=== PATIENT | female | born 1940 | race Caucasian/White ===

== ENCOUNTER 2020-05-26 09:58 | Emergency (ER) | payer MEDICARE, MEDICAID, SELFPAY ==
[2020-05-26] VITALS (12 sets, daily range): BP systolic 121–163; BP diastolic 51–84; PULSE 59–99; RESP 16–28; TEMP 36.3–36.4; O2SAT 94–100; BMI 22.0
--- NOTE | 2020-05-26 10:03 | ECG_ITS ---
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 Measurements Intervals [place] Rate: 70 P: UT: -1 QRS: 11 QRSD: 74 T: 71 QT: 373 QTc: 403 Interpretive Statements Sinus rhythm with PAC and ectopic atrial beats. No previous ECG available for comparison Electronically Signed On 05-26-2020 12:09:18 CDT by Yesenia Bauman M.D. [email or web address] [facility]aksYuanpei Translationpromed[facility].[employer]/store/NU/[id number] f
--- NOTE | 2020-05-26 10:03 | CTR_ITS ---
PROCEDURE INFORMATION: Exam: CT Angiography Chest With Contrast Exam date and time: 05/26/2020 10:50 AM Age: 79 years old Clinical indication: Abdominal pain; Generalized; Chest pain; Type not specified; Patient HX: Copd, emphysema; Additional info: Cp TECHNIQUE: Imaging protocol: Computed tomographic angiography of the chest with intravenous contrast. 3D rendering (Not supervised by radiologist): MIP and/or 3D reconstructed images were created by the technologist. Radiation optimization: All CT scans at this facility use at least one of these dose optimization techniques: automated exposure control; mA and/or kV adjustment per patient size (includes targeted exams where dose is matched to clinical indication); or iterative reconstruction. Contrast material: OMNIPAQUE 350; Contrast volume: 75 ml; Contrast route: INTRAVENOUS (IV); COMPARISON: CR (CHEST, ) 05/26/2020 10:53 AM RADIATION DOSE METRICS: Total DLP (mGy-cm): 848.04 FINDINGS: Pulmonary arteries: Normal. No pulmonary emboli. Aorta: There is mild dilatation of the ascending aorta to a diameter of 4.0 cm. There is no evidence of aortic dissection. The descending aorta is not dilated. Lungs: Prominent pulmonary emphysematous changes are present with large bullous formation in the upper lobes. There is prominent bilateral upper lobe fibrosis specially on the left side. There is pleural fibrosis also most prominent in the left apex. There is a noncalcified 7 mm nodule in the right upper lobe which is best seen on image 12/series 4. A malignancy cannot be excluded. This could be followed with a PET scan or short-term follow-up CT scan. Pleural space: Prominent pulmonary fibrosis especially in the left apex.. Heart: The heart is not enlarged. Some calcifications are present in the coronary arteries. The aortic valve is calcified. Lymph nodes: Unremarkable. No enlarged lymph nodes. Bones/joints: Unremarkable. No acute fracture. Soft tissues: Unremarkable. IMPRESSION: 1. No CT evidence of pulmonary embolus. 2. Mild dilatation of the ascending aorta at 4.0 cm. 3. Prominent pulmonary emphysematous disease and fibrosis in the upper lobes especially on the left side. 4. There is a 7 mm noncalcified nodule in the right upper lobe. Depending on the patient's clinical presentation this could be followed with a PET scan or short-term follow-up CT study. 5. Coronary artery disease. Aortic valve calcification. PROCEDURE INFORMATION: Exam: CT Abdomen And Pelvis With Contrast Exam date and time: 05/26/2020 10:50 AM Age: 79 years old Clinical indication: Abdominal pain; Generalized; Chest pain; Type not specified; Patient HX: Copd, emphysema; Additional info: Cp TECHNIQUE: Imaging protocol: Computed tomography of the abdomen and pelvis with intravenous contrast. Radiation optimization: All CT scans at this facility use at least one of these dose optimization techniques: automated exposure control; mA and/or kV adjustment per patient size (includes targeted exams where dose is matched to clinical indication); or iterative reconstruction. Contrast material: OMNIPAQUE 350; Contrast volume: 75 ml; Contrast route: INTRAVENOUS (IV); COMPARISON: CR (CHEST, ) 05/26/2020 10:53 AM RADIATION DOSE METRICS: Total DLP (mGy-cm): 848.04 FINDINGS: Liver: Normal. No mass. Gallbladder and bile ducts: The gallbladder appears abnormal with a thickened shaft the wall and adjacent pericholecystic fluid. There is intrahepatic and extrahepatic bile duct dilatation. The common duct measures 11 mm in diameter. There is a 4 mm calcification projecting on the extrahepatic bile ducts which may represent obstructing calculus. Intraperitoneal space: Unremarkable. No free air. No significant fluid collection. Pancreas: Normal. No ductal dilation. Spleen: Normal. No splenomegaly. Adrenals: There is thickening of the adrenal glands bilaterally without discrete nodules. Kidneys and ureters: Small benign cyst present in the kidneys. There is no renal calcification or hydronephrosis. Stomach and bowel: Unremarkable. No obstruction. No mucosal thickening. Appendix: No evidence of appendicitis. Intraperitoneal space: No free air. Vasculature: There is calcification of the abdominal aorta but no significant dilatation. Lymph nodes: Unremarkable. No enlarged lymph nodes. Urinary bladder: Unremarkable as visualized. Reproductive: Unremarkable as visualized. Bones/joints: Unremarkable. No acute fracture. Soft tissues: Unremarkable. CT/CT angio chest w abd pel w con IMPRESSION: 1. Gallbladder appears abnormal and very suspicious for acute cholecystitis. 2. Dilated intrahepatic and extrahepatic bile ducts. A 4 mm calcification projecting on the ducts may represent an obstructing stone. Radiation Dose CTDIVOL = (mGy): DLP = 848.04~848.04 (mGy-cm)
--- NOTE | 2020-05-26 10:03 | XRR_ITS ---
PROCEDURE INFORMATION: Exam: XR Chest, 1 View Exam date and time: 05/26/2020 10:50 AM Age: 79 years old Clinical indication: Chest pain; Additional info: Cp TECHNIQUE: Imaging protocol: XR of the chest Views: 1 view. COMPARISON: No relevant prior studies available. FINDINGS: Lungs: There is bilateral upper lobe fibrosis with retraction of the pulmonary reji superiorly greater on the left side. Mild pleural thickening consistent with fibrosis is present and more prominent on the left side. There are no old radiographs for comparison so that an acute process developing in the left upper lobe cannot be excluded based on this single film. Pleural space: Chronic pleural fibrosis in the upper hemithorax. Heart/Mediastinum: Unremarkable. No cardiomegaly. Bones/joints: Unremarkable. XR/XR chest 1V portable [id number] IMPRESSION: 1. Upper lobe fibrosis especially on the left side. 2. There are no old comparison radiographs present for comparison so that an active process in the left upper lobe cannot be excluded. If there are any old radiographs than the should be obtained for comparison.
--- NOTE | 2020-05-26 10:06 | ED_ITS ---
HPI - Abdominal Pain General: Chief Complaint: Abdominal Pain Stated Complaint: CHEST PAIN Time Seen by Provider: 05/26/20 10:00 Source: patient and EMS Mode of arrival: EMS Limitations: no limitations History of Present Illness: HPI narrative: Regine is an 79-year-old female who states she started having chest and abdominal pain throughout the night. States pain is been sharp in nature. She is given aspirin and nitro with no relief. States her main pain is in epigastric region is much worse with palpation and radiates to her back. She has had some nausea with no vomiting. Denies any fevers. Associated Symptoms: Denies chills, dysuria and fever(s) Review of Systems Const: Denies: fever(s), chills, body aches or change in appetite Eyes: Denies: blurry vision or eye discomfort ENMT: Denies: throat pain or dental pain Card: Reports: chest pain Resp: Denies: dyspnea GI: Reports: abdominal pain : Denies: dysuria Musc: Denies: neck pain or back pain Skin/Breast: Denies: rash Neuro: Denies: headache(s) Psych: Denies: depression Jack/Lymph: Denies: easy bruising All/Imm: Denies: urticaria Physical Exam Const: COMMON NORMALS: no acute distress, patient oriented x3 and healthy appearing HENMT: COMMON NORMALS: normocephalic and atraumatic HEAD & SCALP: normocephalic and atraumatic Eye: COMMON NORMALS: Equal, round and reactive pupils present and EOMs intact bilaterally PUPIL: Yes Equal, round and reactive pupils present Neck/C-Spine: COMMON NORMALS: full ROM and supple Chest: COMMONS NORMALS: normal inspection of the chest and normal palpation of entire chest wall Resp: COMMON NORMALS: normal respiratory effort, No retractions, No use of accessory muscles and clear to auscultation bilaterally AUSCULTATION: clear to auscultation bilaterally Cardio: COMMON NORMALS: regular rate, regular rhythm and No murmurs present (Cardio) RATE: regular rate RHYTHM: regular rhythm GI: COMMON NORMALS: Normal to inspection, nondistended, normoactive bowel sounds present, Soft to palpation and no masses PALPATION: Yes Soft to palpation and Yes Tenderness to palpation present (GI) (epigastric) Extremity: COMMON NORMALS: normal to inspection and full ROM Neuro: COMMON NORMALS: patient oriented x3, moves all extremities and no focal motor deficits Psych: COMMON NORMALS: mental status grossly normal, Normal thought process present and cooperative THOUGHT PROCESS: Normal thought process present Skin: COMMON NORMALS: no rashes or lesions noted and no wounds GENERAL SKIN EXAM: no rashes or lesions noted Course Vital Signs: Vital signs: Vital Signs Temperature 97.4 F L 05/26/20 10:04 Pulse Rate 67 05/26/20 13:02 Respiratory Rate 20 H 05/26/20 13:02 Blood Pressure 140/60 05/26/20 13:02 Pulse Oximetry 100 05/26/20 13:02 MDM - Abdominal Pain MDM Narrative: Medical decision making narrative: Regine presents here with abdominal pain and is found cholecystitis with common bile duct dilatation with likely stone impacting that. Spoke to surgeon here who recommended transfer as patient needs an ERCP. I spoke to [facility] and will transfer there for GI availability. Lab Data: Labs: Lab Results 05/26/20 05/26/20 05/26/20 Range/Units 10:34 10:34 10:34 WBC 8.0 (4.0-10.0) 10^3/ uL RBC 4.32 (4.1-5.3) 10^6/u L Hgb 11.3 L (11.5-15.3) g/dL Hct 38.2 (37.0-47.0) % MCV 88.4 (81-99) fL MCH 26.2 L (28.0-34.0) pg MCHC 29.6 L (30.0-36.0) g/dL RDW 15.2 H (12.1-15.1) % Plt Count 317 (130-400) 10^3/c mm MPV 10.0 (7.4-10.4) fL Neut % (Auto) 90.0 % Lymph % (Auto) 6.2 % [place] % (Auto) 2.6 % Eos % (Auto) 0.4 % Baso % (Auto) 0.5 % Neut # (Auto) 7.17 (1.8-7.7) 10^3/u L Lymph # (Auto) 0.5 L (0.8-4.8) 10^3/u L [place] # (Auto) 0.2 (0.2-0.9) 10^3/u L Eos # (Auto) 0.0 (0.0-0.8) 10^3/u L Baso # (Auto) 0.0 (0.0-0.1) 10^3/u L Nucleated RBC % (a uto) 0 % Nucleated RBCs # 0.0 /100WBC Sodium Cancelled Potassium Cancelled Chloride Cancelled Carbon Dioxide Cancelled Anion Gap Cancelled BUN Cancelled Creatinine Cancelled GFR Calculation Cancelled Glucose Cancelled Calculated Osmolal ity Cancelled Calcium Cancelled Total Bilirubin Cancelled AST Cancelled ALT Cancelled Alkaline Phosphata se Cancelled Troponin T Baselin e Cancelled Total Protein Cancelled Albumin Cancelled Globulin Cancelled Lipase Cancelled 05/26/20 05/26/20 Range/Units 11:05 11:05 WBC (4.0-10.0) 10^3/ uL RBC (4.1-5.3) 10^6/u L Hgb (11.5-15.3) g/dL Hct (37.0-47.0) % MCV (81-99) fL MCH (28.0-34.0) pg MCHC (30.0-36.0) g/dL RDW (12.1-15.1) % Plt Count (130-400) 10^3/c mm MPV (7.4-10.4) fL Neut % (Auto) % Lymph % (Auto) % [place] % (Auto) % Eos % (Auto) % Baso % (Auto) % Neut # (Auto) (1.8-7.7) 10^3/u L Lymph # (Auto) (0.8-4.8) 10^3/u L [place] # (Auto) (0.2-0.9) 10^3/u L Eos # (Auto) (0.0-0.8) 10^3/u L Baso # (Auto) (0.0-0.1) 10^3/u L Nucleated RBC % (a uto) % Nucleated RBCs # /100WBC Sodium 142 Potassium 5.2 H Chloride 105 Carbon Dioxide 31 H Anion Gap 11.2 BUN 14 Creatinine 0.6 GFR Calculation Not Reportable Glucose 114 Calculated Osmolal ity 295 Calcium 8.6 Total Bilirubin 0.2 AST 14 ALT 7 Alkaline Phosphata se 66 Troponin T Baselin e 10 Total Protein 6.1 L Albumin 3.3 L Globulin 2.8 Lipase 13 Imaging Data ^: CT Abd/Pel: Radiologist's impression: [address] [place] [address] CT Scan Report Signed Patient: Regine No Unit #: [id number] : 1940 Age/Sex: 79 / F ADM Date: 05/26/20 Loc: ER Room/Bed: Attending Dr: Ordering Provider/Ordering MD: Angela Benson MD Date of Service: 05/26/20 Procedure(s): CT angio chest w abd pel w con Accession Number(s): [id number] Report Number: [id number] PROCEDURE INFORMATION: Exam: CT Angiography Chest With Contrast Exam date and time: 05/26/2020 10:50 AM Age: 79 years old Clinical indication: Abdominal pain; Generalized; Chest pain; Type not specified; Patient HX: Copd, emphysema; Additional info: Cp TECHNIQUE: Imaging protocol: Computed tomographic angiography of the chest with intravenous contrast. 3D rendering (Not supervised by radiologist): MIP and/or 3D reconstructed images were created by the technologist. Radiation optimization: All CT scans at this facility use at least one of these dose optimization techniques: automated exposure control; mA and/or kV adjustment per patient size (includes targeted exams where dose is matched to clinical indication); or iterative reconstruction. Contrast material: OMNIPAQUE 350; Contrast volume: 75 ml; Contrast route: INTRAVENOUS (IV); COMPARISON: CR (CHEST, ) 05/26/2020 10:53 AM RADIATION DOSE METRICS: Total DLP (mGy-cm): 848.04 FINDINGS: Pulmonary arteries: Normal. No pulmonary emboli. Aorta: There is mild dilatation of the ascending aorta to a diameter of 4.0 cm. There is no evidence of aortic dissection. The descending aorta is not dilated. Lungs: Prominent pulmonary emphysematous changes are present with large bullous formation in the upper lobes. There is prominent bilateral upper lobe fibrosis specially on the left side. There is pleural fibrosis also most prominent in the left apex. There is a noncalcified 7 mm nodule in the right upper lobe which is best seen on image 12/series 4. A malignancy cannot be excluded. This could be followed with a PET scan or short-term follow-up CT scan. Pleural space: Prominent pulmonary fibrosis especially in the left apex.. Heart: The heart is not enlarged. Some calcifications are present in the coronary arteries. The aortic valve is calcified. Lymph nodes: Unremarkable. No enlarged lymph nodes. Bones/joints: Unremarkable. No acute fracture. Soft tissues: Unremarkable. IMPRESSION: 1. No CT evidence of pulmonary embolus. 2. Mild dilatation of the ascending aorta at 4.0 cm. 3. Prominent pulmonary emphysematous disease and fibrosis in the upper lobes especially on the left side. 4. There is a 7 mm noncalcified nodule in the right upper lobe. Depending on the patient's clinical presentation this could be followed with a PET scan or short-term follow-up CT study. 5. Coronary artery disease. Aortic valve calcification. PROCEDURE INFORMATION: Exam: CT Abdomen And Pelvis With Contrast Exam date and time: 05/26/2020 10:50 AM Age: 79 years old Clinical indication: Abdominal pain; Generalized; Chest pain; Type not specified; Patient HX: Copd, emphysema; Additional info: Cp TECHNIQUE: Imaging protocol: Computed tomography of the abdomen and pelvis with intravenous contrast. Radiation optimization: All CT scans at this facility use at least one of these dose optimization techniques: automated exposure control; mA and/or kV adjustment per patient size (includes targeted exams where dose is matched to clinical indication); or iterative reconstruction. Contrast material: OMNIPAQUE 350; Contrast volume: 75 ml; Contrast route: INTRAVENOUS (IV); COMPARISON: CR (CHEST, ) 05/26/2020 10:53 AM RADIATION DOSE METRICS: Total DLP (mGy-cm): 848.04 FINDINGS: Liver: Normal. No mass. Gallbladder and bile ducts: The gallbladder appears abnormal with a thickened shaft the wall and adjacent pericholecystic fluid. There is intrahepatic and extrahepatic bile duct dilatation. The common duct measures 11 mm in diameter. There is a 4 mm calcification projecting on the extrahepatic bile ducts which may represent obstructing calculus. Intraperitoneal space: Unremarkable. No free air. No significant fluid collection. Pancreas: Normal. No ductal dilation. Spleen: Normal. No splenomegaly. Adrenals: There is thickening of the adrenal glands bilaterally without discrete nodules. Kidneys and ureters: Small benign cyst present in the kidneys. There is no renal calcification or hydronephrosis. Stomach and bowel: Unremarkable. No obstruction. No mucosal thickening. Appendix: No evidence of appendicitis. Intraperitoneal space: No free air. Vasculature: There is calcification of the abdominal aorta but no significant dilatation. Lymph nodes: Unremarkable. No enlarged lymph nodes. Urinary bladder: Unremarkable as visualized. Reproductive: Unremarkable as visualized. Bones/joints: Unremarkable. No acute fracture. Soft tissues: Unremarkable. CT/CT angio chest w abd pel w con IMPRESSION: 1. Gallbladder appears abnormal and very suspicious for acute cholecystitis. 2. Dilated intrahepatic and extrahepatic bile ducts. A 4 mm calcification projecting on the ducts may represent an obstructing stone. Radiation Dose CTDIVOL = (mGy): DLP = 848.04 848.04 (mGy-cm) EKG Data ^: EKG 1: Attestation: I personally reviewed and interpreted this EKG as follows: EKG interpretation date: 05/26/20 EKG interpretation time: 10:08 Interpretation: afib hr [address] or t wave abnormalities qrs 74 qtc 393 Discharge Plan Discharge Patient Disposition: Xfer Other Clinical Impression: Acute cholecystitis, Choledocholithiasis Condition: Stable Coding Level of Care Code ED Elementary Education Tutor for Chg Fwd Exam Comprehensive
[2020-05-26] MEDS: ondansetron 2 mg/ML SDV 2 mL 4 MG IVP ×3 (10:29→17:28)
[2020-05-26] MEDS: morphine 4 mg/mL SDV 1 mL IVP (10:29)
[2020-05-26] MEDS: sodium chloride 0.9% 1,000 ML 999 ML IV (10:31)
[2020-05-26 10:48] LABS: Basophils % 0.5 %; Eosinophils % 0.4 %; Hematocrit 38.2 % (37.0-47.0); Hemoglobin 11.3 g/dL (11.5-15.3); Lymphocytes # 0.5 10^3/uL (0.8-4.8); Lymphocytes % 6.2 %; Mean Corpuscular HGB Conc 29.6 g/dL (30.0-36.0); Mean Corpuscular Hemoglobin 26.2 pg (28.0-34.0); Mean Corpuscular Volume 88.4 fL (81-99); Monocytes # 0.2 10^3/uL (0.2-0.9); Monocytes % 2.6 %; Neutrophils # 7.17 10^3/uL (1.8-7.7); Nucleated Red Blood Cells % 0 %; Platelet Count 317 10^3/cmm (130-400); Red Blood Count 4.32 10^6/uL (4.1-5.3); Red Cell Distribution Width 15.2 % (12.1-15.1)
[2020-05-26] MEDS: HYDROmorphone 1 mg/mL INJ 1 mL 0.5 MG IVP ×2 (11:18→17:25)
[2020-05-26 11:44] LABS: Alanine Aminotransferase 7 U/L (0-33); Albumin Level 3.3 g/dL (3.5-5.2); Alkaline Phosphatase 66 IU/L (35-105); Anion Gap 11.2 (5-19); Aspartate Amino Transferase 14 U/L (0-32); Blood Urea Nitrogen 14 mg/dL (8-23); Calcium 8.6 mg/dL (8.5-10.5); Carbon Dioxide 31 mmol/L (22-29); Chloride 105 mmol/L (98-107); Globulin 2.8 g/dL (1.3-4.6); Glucose 114 mg/dL (65-115); Lipase 13 U/L (13-60); Osmolality Calculated 295 mOsm/kg (285-295); Potassium 5.2 mmol/L (3.5-5.1); Sodium 142 mmol/L (136-145); Total Bilirubin 0.2 mg/dL (0.15-1.2); Total Protein 6.1 g/dL (6.6-8.7)
[2020-05-26 11:46] LABS: Troponin(5th) Baseline 10 ng/L (0-10)
--- NOTE | 2020-05-26 12:03 | ECG_ITS ---
[facility] Test Date: 2020-05-26 Pat Name: Regine No Department: Room: Gender: Female Vp Clinical Research: : 1940 Requested By: Angela Benson Order Number: [id number] Nghia MD: Yesenia Bauman M.D. Measurements Intervals [place] Rate: 79 P: 78 AR: 150 QRS: 0 QRSD: 84 T: 74 QT: 374 QTc: 430 Interpretive Statements SINUS RHYTHM Compared to ECG 05/26/2020 10:08:21 Atrial premature complex(es) no longer present Electronically Signed On 05-26-2020 14:27:24 CDT by Yesenia Bauman M.D. [email or web address]/store/OM/[id number]
[2020-05-26] MEDS: iohexol 350 mg/mL 100 mL Btl IV (12:13)
--- NOTE | 2020-05-26 12:45 | USR_ITS ---
PROCEDURE INFORMATION: Exam: US Abdomen, Limited; Right Upper Quadrant Exam date and time: 05/26/2020 1:04 PM Age: 79 years old Clinical indication: Abdominal pain; Acute; Additional info: Abd pain TECHNIQUE: Imaging protocol: US abdomen. Real time ultrasound with image documentation. Limited exam focused on the right upper quadrant. COMPARISON: CT angio chest w abd pel w con 05/26/2020 12:05 PM FINDINGS: Liver: . There is prominent intrahepatic bile duct dilatation. No intrahepatic masses are seen. No masses. Gallbladder: Multiple gallstones and bile sludge present within the gallbladder. Gallbladder wall is thickened to over 5 mm in diameter. These findings are consistent with acute cholecystitis. Common bile duct: The extrahepatic bile ducts are dilated to a diameter of 1 cm. Pancreas: The pancreatic duct is dilated to about 3 mm. No masses are seen in the visualized portion of the pancreas. Right kidney: Normal. No mass. No hydronephrosis. Aorta: There are atherosclerotic changes of the aorta but no significant aneurysm. US/US gall bladder 53481 IMPRESSION: 1. Acute cholecystitis with multiple stones and thickened wall. 2. Prominent intrahepatic and extrahepatic bile duct dilatation consistent with distal common duct obstruction. 3. Pancreatic duct dilatation.
[2020-05-26] MEDS: piperacillin-tazobactam 3.375 GM in sodium chloride 0.9% (plus) 50 ML IV (13:29)
--- NOTE | 2020-05-26 16:03 | ECG_ITS ---
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 Measurements Intervals [place] Rate: 61 P: 72 DE: 138 QRS: 12 QRSD: 82 T: 70 QT: 432 QTc: 435 Interpretive Statements SINUS RHYTHM WITH SINUS ARRHYTHMIA Compared to ECG 05/26/2020 12:28:36 No significant changes Electronically Signed On 05-28-2020 7:40:14 CDT by Yeseina Bauman M.D. [id number]
[2020-05-26] MEDS: ipratropium-albuterol 3 mL Neb INHALATION (17:15)
== END 2020-05-26 17:36 | disposition other institution (70) ==
PROVIDERS: Emergency Provider Emergency Medicine
DX: K80.42 Calculus of bile duct with acute cholecystitis without obstruction (principal)
CPT/HCPCS: 12345; 71045; 71275; 74177; 76705; 80053; 83690; 84484; 85025; 93005; 94640; 96365; 96375; 96376; 99284; J1170; J2270; J2405; J2543; J7030; Q9967

== ENCOUNTER 2020-08-26 13:20 | Outpatient (CLI) | payer MEDICARE, MEDICAID, SELFPAY ==
--- NOTE | 2020-08-26 18:56 | ONC CON_ITS ---
Dr. Dos Santos New Patient Note Patient: Regine No Unit #: [id number]: 1940 Dicatated By: Madhu Dos Santos M.D.Date of Visit: Aug 26, 2020 Onc MED New Patient/Consult Referring Physician: Mana Chakraborty N.P. Chief Complaint: Hepatobiliary cancer. 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 She had initially been admitted to [facility] in May with abdominal pain. She had suspected cholecystitis, but a planned cholecystectomy was converted to placement of a cholecystotomy tube when she developed atrial fibrillation/RVR. In July she was admitted to [facility]. Her CT abdomen/pelvis on 07/18/2020 showed severe intrahepatic biliary ductal dilatation. The gallbladder was noted to be irregular with cystic change noted within the gallbladder. There was some masslike thickening centered near the neck of the gallbladder and there was a gallstone versus a mass which measured 8.5 mm. There appeared to be high density within the common bile duct extending into the right hepatic duct. There was abnormal thickening of the endometrium measuring up to 1.3 cm. There is no abnormal lymphadenopathy. A pulmonary nodule in the left lower lobe measured 6.7 mm. Her abdominal MRI/MRCP also showed masslike fullness within the region of the gallbladder neck along with irregular and somewhat diffuse filling defects within the common bile duct. On 07/20/2020 she underwent ERCP. The common bile duct was severely dilated and was noted to contain filling defects. She then underwent biliary sphincterotomy with extraction of stones and fleshy tissue. Pathology on the tissue showing undifferentiated carcinoma, spindle and giant cell type. 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 She had a further ER visit on 07/29/2020. Her repeat CT abdomen/pelvis continue to show severe biliary dilatation with very abnormal appearing mass centrally with intermixed density. The mass measured 4.3 x 4.5 cm and it was noted to be compressing the biliary system. There appeared to be mass in the biliary system measuring 1.8 cm. Abnormal appearing endometrium was again noted. She had medical oncology consultation with Dr. Farooq Oglesby on 08/08/2020. Following that visit she had further evaluation with PET/CT on 08/24/2020. The written report is not yet available. I received a verbal report from the radiologist at the abnormal findings included FDG avid mass in the gadiel hepatis area measuring 5 cm with adjacent satellite nodule and with a separate medial left hepatic lobe lesion suspicious for metastasis. There appeared to be 2 additional implants on the surface of the gallbladder. There was no evidence of other metastatic disease, though. She says her energy has been okay, though she does have limited activity. Her ECOG score is 1. She says her appetite is jail decent. She has had a recent weight loss in the range of 15 pounds. She does not have fever or night sweats. She has shortness of breath associated with her COPD, and she is oxygen dependent. She has nonproductive cough. She does not complain of chest pain. She is still having abdominal pain and she sometimes has nausea. Her acid reflux is adequately managed with medication. She has no complaints with bowel function. She has frequent urination. She has arthritis pain in her hips and knees. She does not complain of headache, and she has no focal neurologic symptoms. Past Medical History: Her medical history includes atrial fibrillation, chronic obstructive pulmonary disease, gastroesophageal reflux disease, hyperlipidemia, and hypertension. Past Surgical History: Her surgical/procedural history includes cataract excisions, removal of lump from throat, cholecystotomy tube placement in May 2020, and ERCP in July 2020. Medications: Albuterol Sulfate 1 Inhalation (of 108 (90 base) mcg/act) Aerosol Powder, Breath Activated Inhalation q 4 hours PRN, Budesonide 2 Inhalation (of 180 mcg/act) Aerosol Powder, Breath Activated Inhalation b.i.d., Cardizem CD 1 Tablet (of 180 mg) Capsule SR 24 HR Oral daily, Cholecalciferol 1 Tablet (of 25 mcg ) Oral daily, Eliquis 1 Tablet (of 2.5 mg) Oral b.i.d., Ipratropium [place] HFA 2 Inhalation (of 17 mcg/act) Aerosol, solution Inhalation four times a day, Ondansetron HCl 1 Tablet (of 8 mg) Oral PRN, oxyCODONE HCl 1 Tablet (of 5 mg) Oral PRN, Simvastatin 1 Tablet (of 40 mg) Oral daily Allergies: Erythromycin Base Social History: Ms. No is . She has history of smoking for nearly 70 years, currently 1/2 pack of cigarettes daily. She does not drink alcohol. Family History: She does not know what happened to her father. Mother of stroke at age 84. A sister with COPD. Another sister has been treated for colon cancer. Review Of Symptoms: Constitutional - Her energy is okay, she does have limited activity. She says her appetite is half decent. She has had recent weight loss of 15 pounds. She does not have fever or night sweats. ECOG score is 1, Eyes - No change in vision, ENMT - She has hearing loss on the right. No tinnitus. She says her nose tends to get stuffed up. No mouth sores. No sore throat or difficulty swallowing, Hematologic/Lymphatic - She has had some bruising, Respiratory - She has shortness of breath associated with COPD. She is oxygen dependent. She has nonproductive cough. No pleuritic pain or hemoptysis, Cardiovascular - No angina pain. She has atrial fibrillation, Gastrointestinal - She still has abdominal pain. She sometimes has nausea. Her acid reflux is adequately managed with PRN medication. No diarrhea or constipation. No blood in the stool or black stools, Genitourinary (F) - No dysuria or hematuria. She has urinary frequency. No urgency or incontinence, Musculoskeletal - She has pain in her hips and knees, Integumentary - No skin rash, Neurologic - No headache. She occasionally has dizziness. No numbness or tingling. No other focal neurologic symptoms, Psychiatric - She has anxiety and depression. She does not sleep well. Vital Signs: Performed on Aug 26, 2020 14:02: 8, 0, 100 %, 80 /min, 20 /min, 109/59 mm(hg), and 98.8 F. Physical Examination: Constitutional - She appears chronically ill, Eyes - Sclerae nonicteric. Conjunctivae clear, ENMT - No lesions noted in the oral cavity, Hematologic/Lymphatic - No cervical, clavicular, or axillary adenopathy, Respiratory - Lungs are clear with diminished air movement bilaterally, Cardiovascular - Heart rhythm is irregular. There is no murmur, gallop, or rub noted, Abdomen - Soft. There is tenderness in the epigastric area and there is also tenderness in the mid to lower abdomen.. Liver and spleen are not enlarged. There is no abdominal mass or ascites noted and there is no inguinal adenopathy, Extremities - No edema. Pedal pulses are palpable bilaterally, Integumentary - No rashes. No suspicious skin lesions noted, Neurologic - No focal neurologic deficits noted. Problem List: 1. 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 PET/CT shows an associated mass measuring 5 cm but with additional satellite nodule, suspected surface implants on the gallbladder, and a separate medial left hepatic lobe lesion. There was no evidence of other metastatic disease. By clinical evaluation, though, her disease appears to be stage IVB (T2b, N0, M1). 2. She underwent ERCP on 07/20/2020. 3. COPD, oxygen dependent. 4. Atrial fibrillation of recent onset. 5. Hypertension. 6. Hyperlipidemia. 7. GERD. 8. She is having some depression. 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 PET/CT shows an associated mass measuring 5 cm but with additional satellite nodule, suspected surface implants on the gallbladder, and a separate medial left hepatic lobe lesion. There was no evidence of other metastatic disease. By clinical evaluation, though, her disease appears to be stage IVB (T2b, N0, M1). She underwent ERCP on 07/20/2020. I reviewed the findings on the imaging studies, including the PET/CT, and I reviewed the biopsy results. We discussed the clinical implications. This is an unusual form of biliary cancer, and I would anticipate that he would have a low probability of responding to systemic therapy. Based on the PET/CT findings, it is extremely unlikely that she would be a surgical candidate, particularly with her underlying COPD. However, as her disease still appears to be confined to the liver/gallbladder area, I am going to consult with Dr. Phan to see whether or not she may be eligible for any regional type therapy. In the meantime, assuming there is sufficient biopsy material available, I also will request a next generation sequencing study to determine if she may be eligible for a targeted therapy or immunotherapy. Overall, she does appear to have very poor prognosis disease. Signed By: Madhu Dos Santos M.D. <<Signature on File>>
== END 2020-08-26 13:21 | disposition home or self-care (01) ==
LOC: ONCMED 13:25
PROVIDERS: PCP Nurse Practitioner; Visit Provider Internal Medicine Medical Oncology
DX: C24.0 Malignant neoplasm of extrahepatic bile duct (principal); J44.9 Chronic obstructive pulmonary disease, unspecified
CPT/HCPCS: 99205

== ENCOUNTER 2020-09-02 15:59 | Emergency (ER) | payer MEDICARE, MEDICAID, SELFPAY ==
[2020-09-02] VITALS (9 sets, daily range): BP systolic 0–153; BP diastolic 0–60; PULSE 0–154; RESP 0–32; TEMP -17.7–37.2; O2SAT 0–100; BMI 18.3
[2020-09-02] MEDS: succinylcholine 20 mg/mL SDV 10mL 70 MG IVP (16:07)
--- NOTE | 2020-09-02 16:16 | ECG_ITS ---
[facility] Test Date: 2020-09-02 Pat Name: Regine No Department: Room: Gender: Female [employer] Internship: : 1940 Requested By: Williams Bolivar Order Number: [id number] Nghia MD: Vadim Jeff M.D. Measurements Intervals [place] Rate: 142 P: 89 MA: 110 QRS: -41 QRSD: 81 T: 86 QT: 260 QTc: 401 Interpretive Statements SINUS TACHYCARDIA WITH SHORT MA INTERVAL, POSSIBLE ATRIAL FLUTTER LEFT AXIS DEVIATION [QRS AXIS < -30] POSSIBLE RIGHT VENTRICULAR CONDUCTION DELAY [RSR (QR) IN V1/V2] Compared to ECG 05/26/2020 16:17:46 Left-axis deviation now present Sinus rhythm no longer present Sinus arrhythmia no longer present Electronically Signed On 09-02-2020 17:05:47 PATIENT MONITOR by Vadim Jeff M.D. [id number]
[2020-09-02 16:34] LABS: ABG PCO2 52.3 mmHg (35-45); ABG PH Result 7.23 (7.35-7.45); Alveolar-Arterial Oxygen Gradi 18.4 mmHg (5-10); Blood Gas Allen Test Pos; Blood Gas Operator Identificat GD; Blood Gas Sample Site Radial, right; Blood Gas Sample Type Arterial; Blood Gas Tidal Volume 0.35; Carboxyhemoglobin 0.6 %THgb (0.4-20.1); HCO3 ABG 21.8 mmol/L (22-26); HGB O2 Sat 98.7 % (95-100); Ionized Calcium Level - ABG 1.2 mmol/L (1.1-1.4); Methemoglobin 0.8 % (0.4-1.5); Oxygen Device VENT; Oxygen Saturation ABG > 100.0; Potassium Level - ABG 5.1 mmol/L (3.5-5.0); Total Hemoglobin 11.8 g/dL (12-16)
[2020-09-02] MEDS: propofol 1,000 MG/100 ML INJ 0.6 MG IV (16:34)
--- NOTE | 2020-09-02 16:41 | ED_ITS ---
HPI - SOB/Dyspnea General: Chief Complaint: Shortness of Breath/Dyspnea Stated Complaint: RESP DISTRESS Time Seen by Provider: 09/02/20 16:15 History of Present Illness: HPI Narrative: 80-year-old female presents emergency room with acute shortness of breath. She arrives via air VAC. She is in extreme respiratory distress with tachycardic in the 130s. Quickly assessed the patient determined that she would need to be intubated based on her presenting condition. Patient had told the air crew that she was a full code and wish to be intubated I confirmed that with the patient who was able to indicate that she wanted to be intubated. Patient was RSI without difficulty and her sats improved. Her first blood gas shows respiratory acidosis. Review of her chart shows that the patient has stage IV gallbladder cancer that she was seen by Dr. Dos Santos last week. There is no systemic treatment available he had referred her to surgery for directed treatment but felt that her prognosis was extremely poor. Call Dr. Dos Santos and discussed with him. He felt it would be appropriate to recommend that the family consider withdrawal of life support given her significant COPD as well as her recent diagnosis of a disseminated cancer with no available effective treatment. MD elicited complaint: shortness of breath and cough Pertinent past history: COPD and other (Gallbladder CA) Review of Systems General: Reports: ROS unobtainable due to endotracheal tube PFSH ED PFSH: Medical History (Updated 09/02/20 @ 18:04 by Williams Olivares DO) COPD (chronic obstructive pulmonary disease) Physical Exam HENMT: COMMON NORMALS: normocephalic, atraumatic and hearing grossly normal bilaterally HEAD & SCALP: normocephalic and atraumatic Resp: EFFORT & INSPECTION: Yes tachypneic, Yes respiratory distress, Yes pursed lip breathing and Yes labored AUSCULTATION: diminished lung sounds Cardio: COMMON NORMALS: regular rhythm and No murmurs present (Cardio) RATE: tachycardic RHYTHM: regular rhythm Course Vital Signs: Vital signs: Vital Signs Temperature 0 F L 09/02/20 19:06 Pulse Rate 0 L 09/02/20 19:06 Respiratory Rate 0 L 09/02/20 19:06 Blood Pressure 0/0 09/02/20 19:06 Pulse Oximetry 0 L 09/02/20 19:06 MDM - SOB/Dyspnea MDM Narrative: Medical decision making narrative: After several long discussions with the daughter and her reviewed all the findings made in where she is at with her history they have decided to withdraw life support and go with comfort care. Do believe that is probably in her best interest given her overall condition. Were making arrangements for admission for comfort care now. Family requested we wait on extubation until other family members arrived which were approximately an hour away. While we were waiting patient began to deteriorate noted on the monitor heart rate dropping precipitously from where it had been went to the room patient's heart rate continued to drop. Advised the family it appeared as if she was rapidly deteriorating while we are having this conversation she went into asystole. Confirmed asystole in 2 leads at the bedside ventilator removed. Discussed with family all questions answered. Lab Data: Labs: Lab Results 09/02/20 09/02/20 09/02/20 Range/Units 16:04 16:04 16:04 WBC 16.1 H (4.0-10.0) 10^3/ uL RBC 4.57 (4.1-5.3) 10^6/u L Hgb 11.7 (11.5-15.3) g/dL Hct 39.3 (37.0-47.0) % MCV 86.0 (81-99) fL MCH 25.6 L (28.0-34.0) pg MCHC 29.8 L (30.0-36.0) g/dL RDW 17.2 H (12.1-15.1) % Plt Count 176 (130-400) 10^3/c mm MPV 11.4 H (7.4-10.4) fL Neut % (Auto) 94.5 % Lymph % (Auto) 3.7 % [place] % (Auto) 1.7 % Eos % (Auto) 0.4 % Baso % (Auto) 0.7 % Neut # (Auto) 13.80 H (1.8-7.7) 10^3/u L Lymph # (Auto) 0.6 L (0.8-4.8) 10^3/u L [place] # (Auto) 0.3 (0.2-0.9) 10^3/u L Eos # (Auto) 0.1 (0.0-0.8) 10^3/u L Baso # (Auto) 0.1 (0.0-0.1) 10^3/u L Nucleated RBC % (a uto) 0.1 % Nucleated RBCs # 0.0 /100WBC Specimen Type Sample Site ABG pH (7.35-7.45) ABG pCO2 (35-45) mmHg ABG pO2 (80.0-100.0) mmH g ABG HCO3 (22-26) mmol/L ABG O2 Saturation ABG Base Excess (-2.0-2.0) mmol/ L Diomedes Test A-a O2 Gradient (5-10) mmHg Hematocrit (37-47) % Hgb O2 Saturation (95-100) % Carboxyhemoglobin (0.4-20.1) %THgb Methemoglobin (0.4-1.5) % Total Hemoglobin (12-16) g/dL Ionized Calcium (1.1-1.4) mmol/L O2 Delivery Device Mechanical Rate FiO2 % Tidal Volume PEEP cmH20 Retail Pharmacy Merchandiser ID Sodium 136 (136-145) mmol/L Potassium 5.9 H (3.5-5.1) mmol/L Chloride 93 L (98-107) mmol/L Carbon Dioxide 23 (22-29) mmol/L Anion Gap 25.9 H (5-19) BUN 36 H (8-23) mg/dL Creatinine 2.2 H (0.5-0.9) mg/dL GFR Calculation Not Reportable Glucose 73 (65-115) mg/dL Calculated Osmolal ity 289 (285-295) mOsm/k g Lactic Acid 9.1 H* (0.5-2.2) mmol/L Calcium 8.6 (8.5-10.5) mg/dL Magnesium 2.0 (1.7-2.3) mg/dL Total Bilirubin 4.1 H (0.15-1.2) mg/dL AST 351 H (0-32) U/L ALT 227 H (0-33) U/L Alkaline Phosphata se 311 H (35-105) IU/L Creatine Kinase 47 (26-192) U/L Troponin T Baselin e (0-10) ng/L Total Protein 5.8 L (6.6-8.7) g/dL Albumin 2.8 L (3.5-5.2) g/dL Globulin 3.0 (1.3-4.6) g/dL Lipase 8 L (13-60) U/L Urine Color (Yellow) Urine Appearance (CLEAR) Urine pH (5-7) Ur Specific Gravit y (1.005-1.030) Urine Protein (Negative) Urine Glucose (UA) (Normal) Urine Ketones (Negative) Urine Blood (Negative) Urine Nitrate (Negative) Urine Bilirubin (Negative) Urine Urobilinogen (Negative) mg/dL Ur Leukocyte Eliza ase (Negative) Urine RBC (0-2) /hpf Urine WBC (0-5) /hpf Ur Squamous Epith Cells (0-5) /hpf Amorphous Sediment Urine Bacteria (NONE) /hpf 09/02/20 09/02/20 09/02/20 Range/Units 16:04 16:04 16:20 WBC (4.0-10.0) 10^3/ uL RBC (4.1-5.3) 10^6/u L Hgb (11.5-15.3) g/dL Hct (37.0-47.0) % MCV (81-99) fL MCH (28.0-34.0) pg MCHC (30.0-36.0) g/dL RDW (12.1-15.1) % Plt Count (130-400) 10^3/c mm MPV (7.4-10.4) fL Neut % (Auto) % Lymph % (Auto) % [place] % (Auto) % Eos % (Auto) % Baso % (Auto) % Neut # (Auto) (1.8-7.7) 10^3/u L Lymph # (Auto) (0.8-4.8) 10^3/u L [place] # (Auto) (0.2-0.9) 10^3/u L Eos # (Auto) (0.0-0.8) 10^3/u L Baso # (Auto) (0.0-0.1) 10^3/u L Nucleated RBC % (a uto) % Nucleated RBCs # /100WBC Specimen Type Arterial Sample Site Radial, right ABG pH 7.23 L (7.35-7.45) ABG pCO2 52.3 H (35-45) mmHg ABG pO2 505.0 H (80.0-100.0) mmH g ABG HCO3 21.8 L (22-26) mmol/L ABG O2 Saturation > 100.0 ABG Base Excess -6.0 L (-2.0-2.0) mmol/ L Diomedes Test Pos A-a O2 Gradient 18.4 H (5-10) mmHg Hematocrit 36.0 L (37-47) % Hgb O2 Saturation 98.7 (95-100) % Carboxyhemoglobin 0.6 (0.4-20.1) %THgb Methemoglobin 0.8 (0.4-1.5) % Total Hemoglobin 11.8 L (12-16) g/dL Ionized Calcium 1.2 (1.1-1.4) mmol/L O2 Delivery Device Vent Mechanical Rate 14.0 FiO2 100.0 % Tidal Volume 0.35 PEEP 8.0 cmH20 Retail Pharmacy Merchandiser ID Gd Sodium 138.0 (136-145) mmol/L Potassium 5.1 H (3.5-5.1) mmol/L Chloride (98-107) mmol/L Carbon Dioxide (22-29) mmol/L Anion Gap (5-19) BUN (8-23) mg/dL Creatinine (0.5-0.9) mg/dL GFR Calculation Glucose 79.0 (65-115) mg/dL Calculated Osmolal ity (285-295) mOsm/k g Lactic Acid (0.5-2.2) mmol/L Calcium (8.5-10.5) mg/dL Magnesium (1.7-2.3) mg/dL Total Bilirubin (0.15-1.2) mg/dL AST (0-32) U/L ALT (0-33) U/L Alkaline Phosphata se (35-105) IU/L Creatine Kinase (26-192) U/L Troponin T Baselin e 56 H (0-10) ng/L Total Protein (6.6-8.7) g/dL Albumin (3.5-5.2) g/dL Globulin (1.3-4.6) g/dL Lipase (13-60) U/L Urine Color Dark yellow (Yellow) Urine Appearance Clear (CLEAR) Urine pH 5 (5-7) Ur Specific Gravit y 1.015 (1.005-1.030) Urine Protein 1+ H (Negative) Urine Glucose (UA) Norm (Normal) Urine Ketones 1+ H (Negative) Urine Blood 2+ H (Negative) Urine Nitrate Negative (Negative) Urine Bilirubin 2+ H (Negative) Urine Urobilinogen 4+ H (Negative) mg/dL Ur Leukocyte Eliza ase Trace H (Negative) Urine RBC 0-4 H (0-2) /hpf Urine WBC 5-10 H (0-5) /hpf Ur Squamous Epith Cells 0-4 H (0-5) /hpf Amorphous Sediment Not Reportable Urine Bacteria Trace (NONE) /hpf Discharge Plan Discharge Patient Disposition: Probable Cause of Probable cause of : Cardiac arrest Coding Level of Care Code ED I[employer]igation Tax Assessor Collector for Chg Fwd Exam Expanded Problem Focused
[2020-09-02] MEDS: ipratropium-albuterol 3 mL Neb 6 ML INHALATION (16:43)
[2020-09-02 16:50] LABS: Basophils # 0.1 10^3/uL (0.0-0.1); Basophils % 0.7 %; Eosinophils # 0.1 10^3/uL (0.0-0.8); Eosinophils % 0.4 %; Hematocrit 39.3 % (37.0-47.0); Hemoglobin 11.7 g/dL (11.5-15.3); Lymphocytes # 0.6 10^3/uL (0.8-4.8); Lymphocytes % 3.7 %; Mean Corpuscular HGB Conc 29.8 g/dL (30.0-36.0); Mean Corpuscular Hemoglobin 25.6 pg (28.0-34.0); Mean Platelet Volume 11.4 fL (7.4-10.4); Monocytes # 0.3 10^3/uL (0.2-0.9); Monocytes % 1.7 %; Nucleated Red Blood Cells % 0.1 %; Platelet Count 176 10^3/cmm (130-400); Red Blood Count 4.57 10^6/uL (4.1-5.3); Red Cell Distribution Width 17.2 % (12.1-15.1); White Blood Count 16.1 10^3/uL (4.0-10.0)
[2020-09-02 17:01] LABS: Blood Urine 2+ (Negative); Glucose Urine UA Norm (Normal); Ketones Urine 1+ (Negative); Protein Urine 1+ (Negative); Specific Gravity, Urine 1.015 (1.005-1.030); Urine Appearance Clear (CLEAR); Urine Color Dark Yellow (Yellow); pH Urine 5 (5-7)
[2020-09-02 17:02] LABS: Add Urine Microscopic? YES; Bilirubin Urine 2+ (Negative); Leukocyte Esterase Urine Trace (Negative); Nitrate Urine Negative (Negative); Urobilinogen Urine 4+ mg/dL (Negative)
[2020-09-02 17:09] LABS: Neutrophils % 94.5 %
[2020-09-02 17:10] LABS: Slide Review Slide Review Perform
[2020-09-02 17:13] LABS: RBC Urine 0-4 /hpf (0-2); Squamous Epithelial Cell Urine 0-4 /hpf (0-5)
[2020-09-02 17:14] LABS: Bacteria Urine TRACE /hpf
[2020-09-02 17:16] LABS: Add Urine Culture? No
[2020-09-02 17:31] LABS: Alanine Aminotransferase 227 U/L (0-33); Albumin Level 2.8 g/dL (3.5-5.2); Alkaline Phosphatase 311 IU/L (35-105); Aspartate Amino Transferase 351 U/L (0-32); Blood Urea Nitrogen 36 mg/dL (8-23); Calcium 8.6 mg/dL (8.5-10.5); Carbon Dioxide 23 mmol/L (22-29); Chloride 93 mmol/L (98-107); Creatine Phosphokinase 47 U/L (26-192); Glucose 73 mg/dL (65-115); Lipase 8 U/L (13-60); Osmolality Calculated 289 mOsm/kg (285-295); Sodium 136 mmol/L (136-145); Total Bilirubin 4.1 mg/dL (0.15-1.2); Total Protein 5.8 g/dL (6.6-8.7)
[2020-09-02 17:33] LABS: Troponin(5th) Baseline 56 ng/L (0-10)
[2020-09-02 17:47] LABS: Lactic Sepsis W/Reflex 9.1 mmol/L (0.5-2.2)
[2020-09-02 17:48] LABS: Anion Gap 25.9 (5-19)
[2020-09-02 17:49] LABS: Potassium 5.9 mmol/L (3.5-5.1)
--- NOTE | 2020-09-02 18:31 | PC.NURSE ---
Decision was made by family to make pt comfort care, pt was disconnected from ventilator. At 1830, pt went into asystole. TOD 1829.
[2020-09-02 18:33] LABS: Reflex Lactate Order REFLEX LACTIC ORDERD
== END 2020-09-02 20:32 | disposition expired ==
PROVIDERS: Emergency Provider Family Medicine; PCP Nurse Practitioner
DX: I46.9 Cardiac arrest, cause unspecified (principal); J44.9 Chronic obstructive pulmonary disease, unspecified
CPT/HCPCS: 12345; 31500; 36600; 51702; 80051; 80053; 81001; 82330; 82550; 82805; 83605; 83690; 83735; 84484; 85025; 87040; 87077; 87186; 87205; 93005; 94002; 94640; 94799; 96374; 96375; 99283; 99291; J0330; J2704; J2930; J3490